=== PATIENT | female | born 1945 | race Caucasian/White ===

== ENCOUNTER → 2017-01-18 | Outpatient (CLI) | payer MEDICARE ==
[~2017-01-18] MED LIST: ANTIVERT PO; ASPIRIN81 M2 PO; ATIVAN PO; BAYER CHEWABLE81 MG PO; CALCIUM + D 6001 TA1 PO; CALCIUM 500 + D1 TAB; CALCIUM 600 + D1 TAB PO; CALCIUM 600 +1 EAC3 PO; CIPRO PO; COLCRYS0.6 MG PO; COREG3.125 MG PO; COREG6.25 M1 PO; CRANBERRY CONC500 MG PO; FELODIPINE ER2.5 MG PO; FELODIPINE ER5 MG PO; JANUVIA50 MG PO; LISINOPRIL-HCTZ1 T18 PO; LISINOPRIL-HCTZ1 T20 PO; LISINOPRIL10 MG PO; NEURONTIN; NEURONTIN100 MG PO; OMEPRAZOLE40 MG PO; PHENERGAN PO; PLENDIL; PLENDIL PO; SIMVASTATIN20 MG PO; SIMVASTATIN40 MG PO; VITAMIN B 6 PO; VITAMIN B650 MG PO; VITAMIN D-32000 UNI1 PO; VITAMIN D32000 UNI1 PO; ZESTORETIC; ZOCOR
--- NOTE | ~2017-01-18 | CT71 ---
[facility] A Service of [facility] RADIOLOGY TEXT RESULTS PATIENT: NEGRO CHOU LOCATION: [facility] : 45 UNIT #: [id number] AGE: [address]: Moy Mcpherson MD SEX: F ORDER DR: [id number] [place] [id number] O MR#: [id number] Acc #: [id number] NAME: NEGRO CHOU : 1945 SEX: F STUDY DATE/TIME: 01/18/2017 8:40 UNIT: [facility] ROOM: STUDY DESCRIPTION: CT Head Wo Contrast Attending Physician: Moy Mcpherson Jr., M.D. Referring Physician: Moy Mcpherson Jr., M.D. Ordering Physician: Moy Mcpherson Jr., M.D. Primary Care Physician: Moy Mcpherson Jr., M.D. MEDICAL IMAGING REPORT This report is preliminary unless electronic signature is present. EXAM Head CT without contrast HISTORY Worsening headaches and poor balance. Symptoms over the past several months accompanied by blurred vision. TECHNIQUE Axial images were obtained without contrast and compared with 02/13/2016. This CT examination was performed with one or more of the following radiation dose reduction techniques: automatic exposure control, adjustment of mA and/or kV according to patient size, and iterative reconstruction. FINDINGS No changes are seen since the previous exam. There is no evidence of mass lesion, hemorrhage or edema. Ventricular size is normal. Extraaxial structures are unremarkable. IMPRESSION Negative study. No change from the previous exam. Dictated by... Robert Daly M.D. THIS IS AN ELECTRONICALLY VERIFIED REPORT Robert Daly M.D. at 01/18/2017 3:46 PM RLF/mjs [facility] A Service [facility] RADIOLOGY TEXT RESULTS PATIENT: NEGRO CHOU LOCATION: [facility] : 45 UNIT #: [id number] AGE: [address]: Moy Mcpherson MD SEX: F ORDER DR: TD: 01/18/2017 12:48 JOB #: [id number] MEDICAL IMAGING REPORT Page 1 of 1
== END | disposition home or self-care (01) ==
LOC: SCT 08:40 → CCAT 09:00 → SCT 09:00
DX: R51 Headache (principal); R26.89 Other abnormalities of gait and mobility
CPT/HCPCS: 70450